=== PATIENT | male | born 1995 | race Caucasian/White ===

== ENCOUNTER 2019-12-26 07:53 | Day surgery (SDC) | payer OTHER ==
[2019-12-25 13:28] VITALS: BMI 23.9
[2019-12-26 08:55] VITALS: TEMP 97.8
[2019-12-26 10:03] VITALS: PULSE 61
[2019-12-26 10:28] VITALS: BP 104/66
== END 2019-12-26 10:53 | disposition home or self-care (01) ==
LOC: JASU-ENDO 07:53
PROVIDERS: ATTEND Internal Medicine Gastroenterology
PROC: 0DJD8ZZ Inspection of Lower Intestinal Tract, Via Natural or Artificial Opening Endoscopic (ICD-10-PCS; principal; 2019-12-26 08:30)
DX: K59.00 Constipation, unspecified (principal); K64.8 Other hemorrhoids